=== PATIENT | male | born 1965 | race Caucasian/White ===

== ENCOUNTER 2016-10-01 03:52 | Emergency (ER) | payer BC, OTHER ==
[2016-10-01] MEDS ORDERED: SODIUM CHLORIDE 1,000 ML IV ONE (04:00)
[2016-10-01] MEDS ORDERED: DEXAMETHASONE SOD PHOSPHATE 10 MG/1 ML VIAL IVPUSH ONE (04:00)
--- NOTE | 2016-10-01 04:04 | PDOC ---
History of Present Illness - General Chief Complaint: Allergic Reaction Stated Complaint: allergic reaction Time Seen by Provider: 10/01/16 03:59 History Source: Patient Exam Limitations: No Limitations - History of Present Illness Initial Comments: 10/01/16 04:01 This is a 51-year-old male who comes in complaining of waking up this morning with swelling of the sclerae and redness and itching of his extremities and trunk. Patient came in for evaluation. Patient denied any shortness of breath. Patient is complaining of some mild sensation that his throat is swollen but not closing. Patient denies history of similar symptoms in the past. Patient denies any new lotions creams or ointments or foods. Patient is otherwise healthy and takes no medication. Patient did not take anything for his symptoms became straight to the ER. PAST MEDICAL HISTORY: no significant history PAST SURGICAL HISTORY: no significant history FAMILY HISTORY: no pertinant history SOCIAL HISTORY: Pt lives with family and is employed. MEDICATIONS: reviewed ALLERGIES: As per nursing notes Review of Systems General: No fevers or chills, no weakness, no weight loss HEENT: No change in vision. No sore throat,. No ear pain CardioVascular: No chest pain or shortness of breath Respiratory:No cough, or wheezing. Gastrointestinal: no nausea, vomitting, diarrhea or constipation, No rectal bleeding Genitourinary: No dysuria, hematuria, or frequency Musculoskeletal: No joint or muscle pain or swelling Neurologic: No headache, vertigo, dizziness or loss of consciousness Psychiatric: nor depression Skin: No rashes or easy bruising Endocrine: no increased thirst or abnormal weight change Allergic: no skin or latex allergy All other systems reviewed and normal Exam: General: Well-nourished well-developed individual, no acute distress HEENT: Throat: Normal, tonsils normal, no erythema or exudate, there is some mild angioedema of the posterior oropharynx, and face. Neck: Supple, no meningeal signs, no lymphadenopathy Eyes::Pupils equal reactive and round, extraocular motion intact Chest: Nontender to palpation Cardiac: S1-S2 normal, regular rate and rhythm, no murmurs rubs or gallops Respiratory: Lungs clear to auscultation bilateral Abdomen: Soft, nondistended, normal bowel sounds, nontender to palpation diffusely Extremities: Warm, dry, no cyanosis, clubbing, or edema Skin: No rashes Neuro: Alert and oriented x3, nonfocal exam, grossly intact, normal gait Psych: Normal mood and affect 10/01/16 06:26 Reevaluation patient symptoms have resolved, there is no more angioedema, there is no more erythema or hives. Patient feels much better. Assessment and plan: This is a 51-year-old male comes in complaining of an ALLERGIC reaction. Patient is uncertain as to what he is ALLERGIC to however he was treated for the reaction with Decadron and Benadryl with resolution of his symptoms. Patient was observed for almost 3 hours and discharged home with a prescription for Medrol Dosepak. Patient was told he can also take additional Benadryl if needed or long-acting antihistamine such as Nilda or Claritin. Past History - Past Medical History Allergies/Adverse Reactions: Allergies Allergy/AdvReac Type Severity Reaction Status Date / Time No Known Allergies Allergy Verified 10/01/16 03:59 Home Medications: Ambulatory Orders Methylprednisolone [Medrol Dose Rah] 4 mg PO ASDIR #21 tablet 10/01/16 - Immunization History TDAP Vaccination: Yes Immunization Up to Date: Yes - Psycho/Social/Smoking Cessation Hx Anxiety: No Suicidal Ideation: No Smoking History: Never smoked Have you smoked in the past 12 months: No Number of Cigarettes Smoked Daily: 0 Hx Alcohol Use: No Substance Use Type: None *DC/Admit/Observation/Transfer Diagnosis at time of Disposition: Allergic reaction - Discharge Dispostion Disposition: HOME Condition at time of disposition: Stable Admit: No - Prescriptions Prescriptions: Methylprednisolone [Medrol Dose Rah] 4 mg PO ASDIR #21 tablet - Patient Instructions Printed Discharge Instructions: DI for Adverse Drug Reaction -- Allergic Additional Instructions: Give the prescription filled for the Medrol Dosepak and take as per the Dosepak. In addition to that if symptoms begin to worsen take Benadryl one to 2 tablets every 6 hours if needed. Return to the emergency department immediately with ANY new, persistent or worsening symptoms. Continue any medications as previously prescribed by your physician. You should follow up with your primary doctor as soon as possible regarding today's emergency department visit. . Please make sure your doctor reviews the results of your emergency evaluation. Thank you for coming to the Emergency Department today for your care. It was a pleasure to see you today. Please note that your evaluation is INCOMPLETE until you follow-up with your doctor.
[2016-10-01 04:08] VITALS: TEMP 98.2; BMI 25.3
[2016-10-01 04:37] VITALS: PULSE 78
[2016-10-01 06:41] VITALS: BP 128/83
== END 2016-10-01 06:45 | disposition home or self-care (01) ==
LOC: FER 03:52
PROC: 3E033GC Introduction of Other Therapeutic Substance into Peripheral Vein, Percutaneous Approach (ICD-10-PCS; principal; 2016-10-01)
PROC: 3E0337Z Introduction of Electrolytic and Water Balance Substance into Peripheral Vein, Percutaneous Approach (ICD-10-PCS; 2016-10-01)
DX: T78.40XA Allergy, unspecified, initial encounter (principal)
CPT/HCPCS: 99282-25

== ENCOUNTER 2024-01-05 16:50 | Emergency (ER) | payer BC, OTHER ==
[2024-01-05 17:14] VITALS: BMI 27.1
[2024-01-05] MEDS: SODIUM CHLORIDE 1,000 ML IV STA (17:15)
[2024-01-05 17:51] LABS: EPITHELIAL CELLS 0-5 /hpf
[2024-01-05 18:03] LABS: INR 0.94 (0.83-1.09); PROTHROMBIN TIME (PATIENT) 10.7 SEC (9.7-13.0)
[2024-01-05 18:06] LABS: HEMATOCRIT 47.5 % (35.4-49); HEMOGLOBIN 15.9 G/dL (11.7-16.9); MCHC 33.5 g/dl (32.0-35.9); MEAN CELL VOLUME 95.3 fl (80-96); MEAN PLT VOLUME 9.6 fl (7.5-11.1); PLATELET COUNT 211.2 10^3/uL (134-434); RBC 4.98 10^6/uL (4.00-5.60); WHITE BLOOD COUNT 12.9 10^3/uL (4.0-10.8)
[2024-01-05 18:19] LABS: CREATININE 0.8 mg/dl (0.6-1.3); POTASSIUM 3.7 mmol/L (3.5-5.1)
[2024-01-05 18:20] LABS: CALCIUM 10.5 mg/dl (8.5-10.1); TOT PROT 7.1 g/dl (6.4-8.2)
[2024-01-05 18:21] LABS: ALBUMIN 5.1 g/dl (3.4-5.0); BILIRUBIN,TOTAL 1.1 mg/dl (0.2-1)
[2024-01-05 18:27] LABS: PLATELET ESTIMATE ADEQUATE
[2024-01-05 21:06] VITALS: BP 140/88; PULSE 66; RESP 15; TEMP 98.4
== END 2024-01-05 21:20 | disposition home or self-care (01) ==
LOC: FER 16:50
PROC: 3E0337Z Introduction of Electrolytic and Water Balance Substance into Peripheral Vein, Percutaneous Approach (ICD-10-PCS; principal; 2024-01-05)
DX: R10.2 Pelvic and perineal pain (principal); R11.0 Nausea
CPT/HCPCS: 36415; 74177-TC; 80053; 81003; 81015; 83690; 85027; 85610; 99285-25; Q9967